=== PATIENT | female | born 1950 | race Caucasian/White ===

== ENCOUNTER 2021-12-23 12:39 | Observation (INO) ==
[2021-12-23] MEDS ORDERED: Melatonin 3 MG TABLET PO PRN (15:28)
[2021-12-23] MEDS ORDERED: Naloxone 0.4 MG/ML INJ IVP PRN (15:28)
[2021-12-23] MEDS ORDERED: Ondansetron ODT 4 MG TAB.RAPDIS SL PRN (15:28)
[2021-12-23] MEDS ORDERED: Perflutren Lipid Microsphere 1.3 ML in 0.9 % Sodium Chloride 8.7 ML IVP PRN (16:55)
[2021-12-23] MEDS ORDERED: D5% in Water 1,000 ML IVC PRN (17:05)
[2021-12-23] MEDS ORDERED: *HR* Dextrose 50 % in Water (Syg) 50 ML SYRINGE IVP PRN (17:05)
[2021-12-23] MEDS ORDERED: Dextrose 4 GM Chewable Tablets PO PRN ×2 (17:05)
[2021-12-23 18:56] LABS: Basophils # 0.1 K/mcL (0.0-0.2); Basophils % 0.7 %; Eosinophils # 0.1 K/mcL (0.0-0.6); Eosinophils % 0.6 %; Hematocrit 41.4 % (35.3-44.9); Hemoglobin 14.6 g/dL (11.5-15.4); Immature Granulocytes % 1.2 % (0-4); Lymphocytes # 2.3 K/mcL (0.6-4.6); Mean Corpuscular HGB Conc 35.3 g/dL (31.6-35.5); Mean Corpuscular Hemoglobin 31.5 pg (28.0-33.3); Mean Corpuscular Volume 89.4 fL (83.0-100.0); Mean Platelet Volume 10.9 fL (9.4-12.4); Monocytes # 0.4 K/mcL (0.0-1.3); Neutrophils # 5.6 K/mcL (1.6-8.9); Nucleated Red Blood Cells 0.6 /100 WBC (0); Platelet Count 239 K/mcL (140-400); Red Blood Count 4.63 M/mcL (3.82-4.97); Red Cell Distribution Width 12.7 % (11.5-14.5); Segmented Neutrophils % 65.5 %; White Blood Count 8.6 K/mcL (4.3-11.1)
[2021-12-23 19:17] LABS: Amphetamine Screen,Urine Negative ng/mL (Cutoff=1000); Barbiturate Screen,Urine Negative ng/mL (Cutoff=200); Benzodiazepines Screen,Urine Negative ng/mL (Cutoff=200); Cannabinoid Screen,Urine Negative ng/mL (Cutoff = 50); Cocaine Screen,Urine Negative ng/mL (Cutoff= 300); Opiate Screen,Urine Positive ng/mL (Cutoff=300); Phencyclidine Screen,Urine Negative ng/mL (Cutoff=25)
[2021-12-23] MEDS: Insulin LISPRO 300 UNITS/3 ML VIAL SUBQ SCH ×2 (20:27→23:45)
[2021-12-23 22:06] LABS: Calcium 8.8 mg/dL (8.6-10.3); Potassium 4.4 mEq/L (3.5-5.1)
[2021-12-23 22:19] LABS: Thyroid Stimulating Hormone 1.617 mcIU/mL (0.340-5.600)
[2021-12-24 02:05] LABS: Hematocrit 39.2 % (35.3-44.9); Hemoglobin 13.3 g/dL (11.5-15.4); Mean Corpuscular HGB Conc 33.9 g/dL (31.6-35.5); Mean Corpuscular Volume 91.4 fL (83.0-100.0); Mean Platelet Volume 10.1 fL (9.4-12.4); Platelet Count 234 K/mcL (140-400); Red Blood Count 4.29 M/mcL (3.82-4.97); Red Cell Distribution Width 12.7 % (11.5-14.5); White Blood Count 9.4 K/mcL (4.3-11.1)
[2021-12-24 02:23] LABS: BUN/Creatinine Ratio 20 (6-26); Blood Urea Nitrogen 20 mg/dL (8-23); Calcium 8.8 mg/dL (8.6-10.3); Carbon Dioxide 24 mEq/L (23-29); Chloride 104 mEq/L (98-107); Glucose 185 mg/dL (70-105); Osmolality,Calculated 289 (280-300); Potassium 3.9 mEq/L (3.5-5.1); Sodium 136 mEq/L (136-145); eGFR For African Americans > 60 (> 60); eGFR For Non-African Americans 55 (> 60)
[2021-12-24] MEDS: Insulin LISPRO 300 UNITS/3 ML VIAL SUBQ SCH ×5 (04:02→21:11)
[2021-12-24] MEDS ORDERED: Insulin LISPRO 300 UNITS/3 ML VIAL SUBQ SCH (07:30)
[2021-12-24] MEDS: amLODIPine 5 MG TABLET PO SCH (12:52)
[2021-12-24] MEDS ORDERED: Piperacillin/Tazobactam 4.5 GM in 0.9 % Sodium Chloride Mini Bag 100 ML IVPB ONE (15:35)
[2021-12-24] MEDS ORDERED: Acetaminophen 325 MG TABLET PO PRN (15:56)
[2021-12-24] MEDS: Piperacillin/Tazobactam 3.375 GM in 0.9 % Sodium Chloride Mini Bag 100 ML IVPB SCH (16:30)
[2021-12-24] MEDS: carvediloL 6.25 MG TABLET PO SCH (16:34)
[2021-12-24 19:00] LABS: Bacteria,Urine Few per hpf (None-Few); Bilirubin,Urine Negative (Negative); Blood,Urine Negative (Negative); Clarity,Urine Clear (Clear); Color,Urine Colorless (Yellow); Glucose,Urine (UA) 500 mg/dL (Normal); Ketones,Urine Negative (Negative); Leukocyte Esterase,Urine Large (Negative); Nitrite,Urine Negative (Negative); Protein,Urine Negative (Neg-Trace); Specific Gravity,Urine 1.005 (1.010-1.025); Squamous Epithelial Cell,Urine Few per hpf (None-Few); Urobilinogen,Urine Normal (Normal); WBC,Urine 30-50 per hpf (0-3)
[2021-12-24] MEDS ORDERED: Valsartan 80 MG TABLET PO SCH (21:00)
[2021-12-25] MEDS: Piperacillin/Tazobactam 3.375 GM in 0.9 % Sodium Chloride Mini Bag 100 ML IVPB SCH ×3 (00:28→15:47)
[2021-12-25 03:44] LABS: Hemoglobin 13.1 g/dL (11.5-15.4); Mean Corpuscular HGB Conc 33.6 g/dL (31.6-35.5); Mean Corpuscular Hemoglobin 30.8 pg (28.0-33.3); Mean Corpuscular Volume 91.5 fL (83.0-100.0); Mean Platelet Volume 10.1 fL (9.4-12.4); Platelet Count 227 K/mcL (140-400); Red Blood Count 4.26 M/mcL (3.82-4.97); Red Cell Distribution Width 12.7 % (11.5-14.5); White Blood Count 8.7 K/mcL (4.3-11.1)
[2021-12-25 04:10] LABS: BUN/Creatinine Ratio 22 (6-26); Blood Urea Nitrogen 17 mg/dL (8-23); Calcium 8.8 mg/dL (8.6-10.3); Carbon Dioxide 24 mEq/L (23-29); Chloride 105 mEq/L (98-107); Glucose 184 mg/dL (70-105); Osmolality,Calculated 290 (280-300); Potassium 4.1 mEq/L (3.5-5.1); Sodium 137 mEq/L (136-145); eGFR For African Americans > 60 (> 60); eGFR For Non-African Americans > 60 (> 60)
[2021-12-25] MEDS: amLODIPine 5 MG TABLET PO SCH (08:37)
[2021-12-25] MEDS: carvediloL 6.25 MG TABLET PO SCH ×2 (08:37→17:35)
[2021-12-25] MEDS: Insulin LISPRO 300 UNITS/3 ML VIAL SUBQ SCH ×4 (08:37→21:37)
[2021-12-26] MEDS: Piperacillin/Tazobactam 3.375 GM in 0.9 % Sodium Chloride Mini Bag 100 ML IVPB SCH ×2 (00:14→07:28)
[2021-12-26 02:55] LABS: Hematocrit 38.4 % (35.3-44.9); Hemoglobin 13.1 g/dL (11.5-15.4); Mean Corpuscular HGB Conc 34.1 g/dL (31.6-35.5); Mean Corpuscular Hemoglobin 30.8 pg (28.0-33.3); Mean Corpuscular Volume 90.1 fL (83.0-100.0); Mean Platelet Volume 9.7 fL (9.4-12.4); Platelet Count 235 K/mcL (140-400); Red Blood Count 4.26 M/mcL (3.82-4.97); Red Cell Distribution Width 12.4 % (11.5-14.5)
[2021-12-26 03:14] LABS: BUN/Creatinine Ratio 19 (6-26); Blood Urea Nitrogen 15 mg/dL (8-23); Calcium 9.2 mg/dL (8.6-10.3); Carbon Dioxide 25 mEq/L (23-29); Chloride 105 mEq/L (98-107); Glucose 145 mg/dL (70-105); Osmolality,Calculated 289 (280-300); Sodium 138 mEq/L (136-145); eGFR For African Americans > 60 (> 60); eGFR For Non-African Americans > 60 (> 60)
[2021-12-26 06:36] VITALS: O2SAT 97
[2021-12-26] MEDS: carvediloL 6.25 MG TABLET PO SCH (07:27)
[2021-12-26] MEDS: amLODIPine 5 MG TABLET PO SCH (07:28)
[2021-12-26] MEDS: Insulin LISPRO 300 UNITS/3 ML VIAL SUBQ SCH ×2 (07:28→11:12)
[2021-12-26 10:59] VITALS: BP 121/56; PULSE 68; TEMP 97.8
== END 2021-12-26 14:56 | disposition home or self-care (01) ==
LOC: 2NENU → SUATTDRO 15:02
PROVIDERS: ADMIT Internal Medicine; ATTEND Family Medicine